=== PATIENT | male | born 1995 | race African-American/Black ===

== ENCOUNTER 2017-06-04 18:26 | Emergency (ER) | payer OTHER ==
[~2017-06-04] VITALS: Ht 170.2 cm; Wt 70.5 kg
[~2017-06-04 18:26] MED LIST: CYCL5TAB PO
[2017-06-04 18:31] VITALS: BP 90/42; PULSE 40; RESP 20; O2SAT 100
--- NOTE | 2017-06-04 18:47 | ED.REPORT ---
HPI-Abd Pain M Under 40 Date of Service Jun 04, 2017 ED Provider: Neville Britton DO Pt is a 21 y/o male with a history of asthma who presents to the ED c/o sharp, RLQ abdominal pain onset 0900 this morning. He states that he has had similar RLQ pain two months ago, which relieved itself without any intervention. He describes his pain as a "numb", "sore", and "pinching" sensation. Pt was driving to work when he noticed his symptoms and took ibuprofen for his pain. He rates his current pain as a 6.5/10 and his worst pain as a 9/10. Additional symptoms include nausea s/p eating, lightheadedness, "dark, brown" urine, mild constipation, and subjective fever. His last bowel movement was about 10:00-11: 00 this morning. He denies vomiting, SOB, chest pain, or diarrhea. Nursing Notes Stated Complaint: ABDOMINAL PAIN - APPENDIX Chief Complaint: Male Abdominal Pain Nursing Notes Reviewed: Yes Allergies: Coded Allergies: acetaminophen (Verified Allergy, Severe, hallucinate, 06/04/17) dextromethorphan (Verified Allergy, Severe, hallucinate, 06/04/17) doxylamine (Verified Allergy, Severe, hallucinate, 06/04/17) pseudoephedrine (Verified Allergy, Severe, hallucinate, 06/04/17) Uncoded Allergies: MELONS (Allergy, Unknown, 12/03/15) Scheduled PRN Cyclobenzaprine (Cyclobenzaprine) 5 Mg Tablet 5 MG PO TID PRN PRN Spasm General Time Seen by MD: 18:46 Chief Complaint Abdominal pain Hx Obtained From: Patient, Other family... Arrived By: Walk-in Sudden in Onset?: No Onset Occurred: 5 - 8 hours ago Symptom Duration: Constant Progression since Onset: Constant Location: : RLQ Quality: Painful, Sharp Severity: Current: Pain level 6 out of 10 Severity: Maximum: Pain level 9 out of 10 Associated with: Reports: Constipation, Denies: Chest pain, Diarrhea, Shortness of breath Pertinent Negative: Pt denies other symptoms Recent Healthcare: No recent doctor visit, No recent hospitalization Similar Sx Previous: No Past Medical History Past Medical History Asthma; otherwise healthy Past Surgical History Denies Social History Other Social History: Good social support, Local resident Ambulatory Status Independent Review of Systems "Dark brown" urine No abdominal tenderness Constitutional: Reports: Fever (subjective) Respiratory: Denies: Shortness of breath Cardiovascular: Denies: Chest pain GI: Reports: Abdominal pain, Constipation (mild), Nausea (s/p eating ), Denies: Diarrhea, Vomiting Complete sys rev & neg: except as marked. Neurologic: Reports: Lightheaded, Numbness Physical Exam Initial Vital Signs Vital Signs (First) Date Time Temp Pulse Resp B/P Pulse Ox O2 Delivery O2 Flow Rate FiO2 06/04/17 18:31 36.0 40 20 90/42 100 Room Air Initial VS: Reviewed Head / Eyes: Atraumatic, Normocephalic Extremities: Vascular intact, Neuro intact, No swelling, No tenderness Skin: Warm, Dry, No cyanosis Neurologic: Alert, Oriented, Nonfocal Psychiatric: Mood/affect normal, Behavior normal, Normal thought content General/Constitutional: Awake, Alert, No acute distress Respiratory / Chest: Atraumatic, Breath sounds NL, Breath sounds = bilat Cardiovascular: Heart rate NL, Regular rhythm, Heart sounds NL No lower leg edema Abdomen: Atraumatic, Soft, Non-tender Back: Atraumatic, Full range of motion Right-sided CVAT to percussion Interpretation & Diagnostics Lab Results Interpretation Result Diagram: 06/04/17200506/04/17 2006 Test 06/04/17 20:06 06/04/17 20:15 06/04/17 20:44 White Blood Count 13.3th/mm3 (3.8-10.1) Red Blood Count 4.97mil/mm3 (4.40-5.80) Hemoglobin 14.5g/dL (13.8-17.2) Hematocrit 41.6% (41.0-50.0) Mean Corpuscular Volume 83.7fL (81-100) Mean Corpuscular Hemoglobin 29.2pg (27.0-35.0) Mean Corpuscular Hemoglobin Concent 34.9% (32.0-37.0) Red Cell Distribution Width 12.3% (12.3-15.4) Platelet Count 224bil/L (150-400) Neutrophils (%) (Auto) 78.5% (40-74) Lymphocytes (%) (Auto) 14.4% (14-46) Monocytes (%) (Auto) 5.7% (4-12) Eosinophils (%) (Auto) 0.8% (0-5) Basophils (%) (Auto) 0.2% (0-3) Sodium Level 141mEq/L (134-144) Potassium Level 3.7mEq/L (3.5-5.2) Chloride Level 102mEq/L (97-108) Carbon Dioxide Level 24mmol/L (18-29) Blood Urea Nitrogen 13mg/dL (6-20) Creatinine 0.87mg/dL (0.76-1.27) Estimat Glomerular Filtration Rate 116mL/min (>59) Glucose Level 102mg/dL (60-99) Calcium Level 9.0mg/dL (8.5-10.1) Magnesium Level 1.8mg/dL (1.6-2.6) Total Bilirubin 0.5mg/dL (0.0-1.2) Aspartate Amino Transf (AST/SGOT) 22U/L (0-50) Alanine Aminotransferase (ALT/SGPT) 15U/L (0-44) Alkaline Phosphatase 57U/L (25-150) Total Protein 7.1g/dL (6.4-8.4) Albumin 4.8g/dL (3.4-5.0) Lipase 21U/L (13-60) Lactic Acid Level 1.3mmol/L (0.4-2.0) Urine Color Dark yellow (YELLOW) Urine Appearance Hazy (CLEAR,HAZY) Urine pH 6.5 (5.0-8.0) Urine Specific Mckenzie 1.025 (1.003-1.035) Urine Protein 30mg/dL (NEG,TRACE) Urine Glucose (UA) Negativemg/dL (NEGATIVE) Urine Ketones Tracemg/dL (NEGATIVE) Urine Occult Blood Large (NEGATIVE) Urine Nitrite Negative (NEGATIVE) Urine Bilirubin Negative (NEGATIVE) Urine Urobilinogen Normalmg/dL (NORMAL) Urine Leukocyte Esterase Negative (NEGATIVE) Urine RBC Packed/hpf (0-2) Urine WBC 0-5/hpf (0-5) Urine Epithelial Cells Occasional/hpf (NONE-MOD) Urine Crystals None seen (NONE SEEN) Urine Bacteria Few/hpf (NONE-FEW) Urine Hyaline Casts None/lpf (NONE) Urine Granular Casts None seen (NONE SEEN) Urine Waxy Casts None seen (NONE SEEN) Urine Red Blood Cell Casts None seen (NONE SEEN) Urine White Blood Cell Casts None seen (NONE SEEN) Urine Mucus Present (None Seen) Urine Trichomonas None seen (NONE SEEN) Urine Yeast None (NONE SEEN) Urinalysis Comment None Urine Culture Reflexed Not indicated X-Ray Abdominal Interpretation IMPRESSION: Source of abdominal pain is not identified. Normal for age. Dictated by: Jerome Gutiérrez M.D. on 06/04/2017 at 20:19 Approved by: Jerome Gutiérrez M.D. on 06/04/2017 at 20:20 Study: 2 view Interpretation / Wet Read by: Interpret - Radiologist CT Abd / Pelvis Interpretation IMPRESSION: Mild hydronephrosis at the right kidney, associated with what appears to be 2 mm calculus within the far distal right ureter in this patient with a total of 2 additional 1 mm calculi found in the lower third collecting system of the right kidney. Dictated by: Jerome Gutiérrez M.D. on 06/04/2017 at 21:20 Approved by: Jerome Gutiérrez M.D. on 06/04/2017 at 21:22 Study type: Abdominal CT no contrast Interpretation / Wet Read by: Interpret - Radiologist Re-Eval/Medical Decision Med Decision/Clinical Course 21-year-old male with an unremarkable past medical history resides with right- sided flank and abdominal pain and hematuria. CT KUB reveals a right 2 mm ureterolithiasis. Mild leukocytosis present, but UA without pyuria, and patient without systemic infectious symptoms. Plan to treat with Flomax, Zofran , and hydrocodone for pain. Patient will strain urine and follow-up with PCP early next week. I advised him to cut back on soda which could be contributing to the formation of the kidney stones. Source of Hx: Old records Re-Evaluation/Progress : Time of Eval: 21:50 Patient Status: Condition improved Re-Evaluation/Progress Note: Patient rechecked. Discussed plan for discharge. Patient understands and agrees with plan. F/U instructions and RTER warnings given. All questions addressed at this time. Counseled Regarding: Diagnosis, Lab results, Need for follow-up, When/why to return to ED Patient Discharge & Departure Primary Impression: Ureterolithiasis Additional Impressions: Renal colic Hematuria Leukocytosis Leukocytosis type: unspecified Qualified Code: D72.829 - Elevated white blood cell count, unspecified Disposition: Home Discharge Condition All VS Reviewed: Yes Condition: Stable Patient Instructions: Kidney Stones (ED) Additional Instructions: Thank you for entrusting us with your care today. Your emergency department evaluation today including examination, lab work, and abdominal CT. Your kidney stone should pass on it's own. There are no signs of infection in your urine. Take hydrocodone as needed for pain, Zofran as needed for nausea, and Flomax to help pass the kidney stone. He should also take ibuprofen 800 mg 3 times a day for pain. Strain your urine to look for the kidney stone. Please call on Tuesday in order to schedule a follow-up appointment with your primary care physician in the next week for a recheck. Please return to the emergency department for any new or worsening conditions including any difficulty breathing, fevers, chills, nausea, vomiting, chest pain , lightheadedness, or weakness. Referrals: NOPCP (PCP) [facility] Scribe Attestation Portions of this note were transcribed by Alexandria Harry and Gagandeep Noguera. I, Dr. Perez, personally performed the history, physical exam and medical decision-making; I reviewed and confirmed the accuracy of the information in the transcribed note. Signed by: Lupillo Corona, 06/04/17. Neville Perez DO Jun 04, 2017 18:46 Alexandria Harry Jun 04, 2017 19:09 GAGANDEEP NOGUERA Jun 04, 2017 22:59
[2017-06-04] MEDS ORDERED: Ondansetron 2 mg/mL 2 mL Inj IVPUSH PRN (19:05)
[2017-06-04] MEDS ORDERED: HYDROmorphone 0.5 mg/0.5 mL iSecure Syringe IVPUSH PRN (19:05)
[2017-06-04] MEDS ORDERED: 0.9% Sodium Chloride 1,000 ML IV ONE (19:05)
[2017-06-04 20:12] LABS: BASOPHILS % (AUTO) 0.2 % (0-3); EOSINOPHILS % (AUTO) 0.8 % (0-5); MONOCYTES % (AUTO) 5.7 % (4-12); Mean Corpuscular Hemoglobin 29.2 pg (27.0-35.0); Mean Corpuscular Volume 83.7 fL (81-100); NEUTROPHILS % (AUTO) 78.5 % (40-74); Platelet Count 224 bil/L (150-400)
--- NOTE | 2017-06-04 20:21 | DRSVH ---
PROCEDURE: X-RAY ACUTE ABDOMINAL SERIES ([id number]) INDICATIONS: R SIDED FLANK/ABD PAIN TECHNIQUE: One view chest and two views of the abdomen were acquired. COMPARISON: None. FINDINGS: Surgical changes and devices: None. Chest: Lungs are clear. Heart size is normal. No pleural effusions. No pneumoperitoneum. Abdomen: Bowel gas pattern is normal. No suspicious calcifications. Visualized solid organ contour s appear normal. Bones: No suspicious bony lesions. IMPRESSION: Source of abdominal pain is not identified. Normal for age. Dictated by: Jerome Gutiérrez M.D. on 06/04/2017 at 20:19 Approved by: Jerome Gutiérrez M.D. on 06/04/2017 at 20:20
[2017-06-04 20:38] LABS: Magnesium 1.8 mg/dL (1.6-2.6)
[2017-06-04 21:16] LABS: APPEARANCE,URINE HAZY (CLEAR,HAZY); COLOR,URINE DARK YELLOW (YELLOW); OCCULT BLOOD,URINE LARGE (NEGATIVE); PH,URINE 6.5 (5.0-8.0); UROBILINOGEN,URINE NORMAL (NORMAL)
--- NOTE | 2017-06-04 21:24 | DRSVH ---
PROCEDURE: CT KUB ([id number]) INDICATIONS: hematura, R flank pain TECHNIQUE: Noncontrast 5 mm thick sections acquired from the diaphragms to the symphysis. 5 mm thick coronal an d sagittal reformats were then performed. For radiation dose reduction, the following was used: aut omated exposure control, adjustment of mA and/or kV according to patient size. COMPARISON: None. FINDINGS: Image quality: Excellent. Lung bases: Lung bases are clear. Heart size is normal. Urinary system: Both kidneys are normal in size. No left-sided kidney stones but the lower third co llecting system of the right kidney there appears to be 2 punctate 1 mm calculi. Additionally, note is made of mild central hydronephrosis on the right. No left-sided hydronephrosis or perinephric fat stranding. Both ureters appear non-dilated throughout their expected courses but at the far distal right ureter course there is a 2 mm calculus, best seen on series 2 image 71. Bladder wall thickness is normal; no calcified bladder stones. Other solid organs: Liver and spleen are normal in size. Gallbladder appears normal. Pancreas is n ormal in contours. No adrenal nodules. Peritoneum and bowel: Unenhanced bowel loops demonstrate normal wall thickness and caliber. No free fluid or air. Nodes and vessels: No retroperitoneal or mesenteric adenopathy by size criteria. Aorta and inferior vena cava are normal in caliber. Abdominal wall: No ventral hernias. Pelvis: No free pelvic fluid. No inguinal hernias or adenopathy. Bones: No suspicious bony lesions. No vertebral body compression fractures. IMPRESSION: Mild hydronephrosis at the right kidney, associated with what appears to be 2 mm calculu s within the far distal right ureter in this patient with a total of 2 additional 1 mm calculi found in the lower third collecting system of the right kidney. Dictated by: Jerome Gutiérrez M.D. on 06/04/2017 at 21:20 Approved by: Jerome Gutiérrez M.D. on 06/04/2017 at 21:22
[2017-06-04] MEDS ORDERED: _Ondansetron ODT 4 mg Tablet PO PRN (22:10)
[2017-06-04] MEDS ORDERED: _HYDROcodone/APAP 5-325 mg Tablet PO PRN (22:10)
[2017-06-04 22:11] VITALS: BP 122/56; PULSE 60; RESP 14; O2SAT 95
[2017-06-04 22:50] VITALS: BP 129/53; PULSE 54; RESP 15
== END 2017-06-04 22:51 | disposition home or self-care (01) ==
LOC: SED 18:26
DX: N20.2 Calculus of kidney with calculus of ureter (principal); R31.9 Hematuria, unspecified; D72.829 Elevated white blood cell count, unspecified; Z88.5 Allergy status to narcotic agent; Z88.8 Allergy status to other drugs, medicaments and biological substances
CPT/HCPCS: 36415; 74022; 74176; 80053; 81000; 83605; 83690; 83735; 85025; 96361; 96374; 96375; 99285; J1170; J2405; J7030

== ENCOUNTER 2017-06-24 14:48 | Emergency (ER) | payer OTHER | END 2017-06-24 15:20 | disposition left against medical advice (07) | LOC: SED 14:48 | DX: Z53.20 Procedure and treatment not carried out because of patient's decision for unspecified reasons (principal) ==